=== PATIENT | female | born 1995 | race Caucasian/White ===

== ENCOUNTER → 2019-04-28 | Outpatient (CLI) | payer OTHER ==
[2019-04-29 14:06] LABS: Candida species (DNA Probe) Positive (NEGATIVE); G. vaginalis (DNA Probe) Positive (NEGATIVE); T. vaginalis (DNA Probe) Negative (NEGATIVE)
== END | disposition home or self-care (01) ==
LOC: LAB 18:15 → LAB SHORT 18:15
PROVIDERS: Nurse Practitioner
DX: R30.0 Dysuria (principal); Z72.51 High risk heterosexual behavior
CPT/HCPCS: 87086; 87480; 87510; 87660

== ENCOUNTER 2019-06-05 20:34 | Emergency (ER) | payer OTHER ==
[~2019-06-05] VITALS: Ht 167.6 cm; Wt 43.1 kg
[2019-06-05] MEDS ORDERED: BUPRENORPHINE HC8 MG SL (21:05)
== END 2019-06-05 23:40 | disposition home or self-care (01) ==
LOC: ER 20:34
DX: J02.9 Acute pharyngitis, unspecified (principal); R39.15 Urgency of urination; F17.210 Nicotine dependence, cigarettes, uncomplicated
CPT/HCPCS: 87081; 87147; 87430; 99283